=== PATIENT | female | born 1995 ===

== ENCOUNTER 2017-02-21 08:26 | Emergency (ER) | payer MEDICAID ==
[2017-02-21 09:55] VITALS: BMI 28.3
[2017-02-21 10:58] LABS: RBC URINE 4 /hpf (0-3); URINE BILIRUBIN NEGATIVE (NEGATIVE); URINE BLOOD NEGATIVE (NEGATIVE); URINE COLOR YELLOW (YELLOW); URINE GLUCOSE (UA) NEG (Normal); URINE KETONE NEGATIVE (NEGATIVE); URINE LEUKOCYTE ESTERASE NEG Leu/uL (Negative); URINE PROTEIN NEGATIVE (NEGATIVE); URINE UROBILINOGEN 0.2-1.0 mg/dL (0.2-1.0); WBC URINE 2 /hpf (0-5)
--- NOTE | 2017-02-21 12:11 | OBHP ---
Datetime: 02/21/2017 09:55 IP Adm Impression: , intrauterine IP Admit Plan: Observation/Evaluation Admit Comment, IP Provider: 21 y/o primagravida presenting 23.3 dated by her first trim US as per lawanda braxton, EDC 06/16/17. Presenting with complaints of scant vaginal spotting which started at approx 3 am. Denies recent intercourse, or vaginal trauma. Associated with some lower abdominal pressure which has now resolved but no pain. Denies ctx, LOF. States good PNC, taking PNV, last US was done approx 3 weeks ago. Brings no records with her to verify. PNC: Dr Subhash Alexander PMH: denies PSH: denies SH: denies etoh, tob, drugs O: cervix closed, 0% effaced, -2 A/P - UA - cervix closed -cont monitoring, no contractions - can follow up with OB Dr Cullen in 1 week as scheduled [id number] The patient was seen with the resident and I agree with the note. MD Justo Pelvic Type - PN: Adequate Extremities - PN: Normal Abdomen - PN: Normal Back - PN: Normal Breast - PN: Normal Lungs - PN: Normal Heart - PN: Normal Thyroid - PN: Normal Neurologic - PN: Normal HEENT - PN: Normal General - PN: Normal Vital Signs Provider: Reviewed; Within Normal Limits IP Chief Complaint: Vaginal bleeding Dilatation, Provider: 0 Effacement, Provider: 0 Station, Provider: 0 Genitourinary Exam: Normal DTRs - PN: Normal
[2017-02-21 18:29] VITALS: BP 102/62; PULSE 70; RESP 18
== END 2017-02-21 11:33 | disposition home or self-care (01) ==
LOC: H.EROB2 08:26
DX: O47.02 False labor before 37 completed weeks of gestation, second trimester (principal); Z3A.23 23 weeks gestation of pregnancy